=== PATIENT | male | born 1995 | race African-American/Black ===

== ENCOUNTER 2017-10-30 07:03 | Emergency (ER) | payer OTHER ==
[2017-10-30] MEDS: KETOROLAC TROMETHAMINE 10 MG TAB PO (08:29)
== END 2017-10-30 09:07 | disposition home or self-care (01) ==
LOC: M ED 07:03
DX: S62.321A Displaced fracture of shaft of second metacarpal bone, left hand, initial encounter for closed fracture (principal); V09.9XXA Pedestrian injured in unspecified transport accident, initial encounter; Y92.9 Unspecified place or not applicable; Y93.01 Activity, walking, marching and hiking; Y99.1 Military activity; Z72.0 Tobacco use
CPT/HCPCS: 73060